=== PATIENT | male | born 2000 | race Caucasian/White ===

== ENCOUNTER → 2020-04-25 | Outpatient (CLI) | payer OTHER ==
[~2020-04-25] MED LIST: ADVIL,MOTRIN,R200 MG PO; BACTRIM DS 8001 TA1 PO; KEFZOL PO
== END | disposition home or self-care (01) ==
LOC: COVID19 15:49
PROVIDERS: ATTEND Nurse Practitioner
DX: Z20.828 Contact with and (suspected) exposure to other viral communicable diseases (principal)

== ENCOUNTER → 2021-04-23 | Outpatient (CLI) | payer OTHER | END | disposition home or self-care (01) | LOC: COVID19 15:16 | PROVIDERS: ATTEND Internal Medicine | DX: Z11.52 Encounter for screening for COVID-19 (principal) ==